=== PATIENT | female | born 1975 | race American Indian/Alaskan Native ===

== ENCOUNTER 2022-04-22 06:15 | Day surgery (SDC) | payer BC, MEDICARE ==
[~2022-04-22 06:15] MED LIST: ceFAZolin/STERILE WATER 2 GM/20 ML SYRINGE IV NR
[2022-04-22] MEDS ORDERED: LACTATED RINGERS 1,000 ML ONE (06:59)
--- NOTE | 2022-04-22 07:26 | Anesthesia Day of Surgery ---
Anesthesia Day of Surgery - Day of Surgery Patient Examined: Yes Patient H&P Reviewed: Yes Patient is NPO: Yes
--- NOTE | 2022-04-22 07:26 | Anesthesia Consultation ---
Anesthesia Consult and Med Hx Date of service: 04/22/22 - Airway Anesthetic Teeth Evaluation: Good, Partials (front bottom) ROM Head & Neck: Adequate Mental/Hyoid Distance: Adequate Mallampati Class: Class II Intubation Access Assessment: Good - Pulmonary Exam CTA: Yes - Cardiac Exam Cardiac Exam: RRR - Pre-Operative Health Status ASA Pre-Surgery Classification: ASA2 Proposed Anesthetic Plan: General Nerve Block: IS - Pulmonary Hx Sleep Apnea: Yes - Central Nervous System Hx Psychiatric Problems: Yes - Hematic Hx Anemia: Yes (h/0 blood transfusion with in the last few months) - Other Systems Hx Alcohol Use: No Hx Substance Use: Yes (SMOKES MARIJUANA EVERYDAY. 5-6 JOINTS APPROX.) Hx Cancer: No
[2022-04-22] MEDS ORDERED: fentaNYL 100 MCG/2 ML INJ IV NR (07:27)
[2022-04-22] MEDS ORDERED: LIDOCAINE (1%) 10 MG/1 ML VIAL 20 ML MDV INFILTRATI NR (07:30)
[2022-04-22 07:35] LABS: Hematocrit 35.4 % (30.3-42.9); Hemoglobin 11.5 gm/dl (10.1-14.3); Mean Corpuscular HGB Conc 33 % (30-34); Mean Corpuscular Volume 88 fl (79-97); Platelet Count 136 K/mm3 (140-440); Red Blood Count 4.01 M/mm3 (3.65-5.03)
[2022-04-22] MEDS ORDERED: BUPIVACAINE/PF (0.5%) 5 MG/1 ML 30 ML VIAL INFILTRATI ONE (07:36)
[2022-04-22] MEDS ORDERED: EPINEPHrine/PF 1 MG/1 ML INJ ONE (07:36)
[2022-04-22] MEDS ORDERED: fentaNYL 100 MCG/2 ML INJ ONE (07:36)
[2022-04-22] MEDS ORDERED: MIDAZOLAM 2 MG/2 ML INJ ONE ×2 (07:36→08:00)
[2022-04-22] MEDS ORDERED: LIDOCAINE (1%) 10 MG/1 ML VIAL 20 ML MDV ONE (07:36)
[2022-04-22] MEDS ORDERED: dexAMETHasone 4 MG/ML VIAL ONE (07:36)
[2022-04-22] MEDS ORDERED: VANCOMYCIN/NS 1 GM/250 ML 1 GM/250 ML BAG IV NR (07:39)
[2022-04-22] MEDS ORDERED: ONDANSETRON 4 MG/2 ML INJ ONE (07:45)
[2022-04-22] MEDS ORDERED: propofoL 200 MG/20 ML VIAL IV ONE (07:45)
[2022-04-22] MEDS ORDERED: HYDROmorphone 1 MG/1 ML INJ ONE (07:45)
[2022-04-22] MEDS ORDERED: LIDOCAINE MPF (2%) 20 MG/1 ML VIAL 5 ML ONE (07:45)
[2022-04-22] MEDS ORDERED: ROCURONIUM 50 MG/5 ML INJ IV ONE (07:45)
[2022-04-22 07:49] LABS: Red Cell Distribution Width 27.3 % (13.2-15.2)
[2022-04-22] MEDS ORDERED: LACTATED RINGERS 1,000 ML IV SCH (08:00)
[2022-04-22] MEDS ORDERED: BUPIVACAINE/PF (0.5%) 5 MG/1 ML 10 ML VIAL INFILTRATI NR (08:00)
[2022-04-22] MEDS ORDERED: VANCOMYCIN 1,750 MG in SODIUM CHLORIDE 0.9% 500 ML 500 ML IV ONE (08:00)
[2022-04-22] MEDS ORDERED: SODIUM CHLORIDE 0.9% IRRIG SOLN 2000 ML IR ONE ×2 (09:21)
[2022-04-22] MEDS ORDERED: EPINEPHrine/PF 1 MG/1 ML INJ IV ONE (09:22)
[2022-04-22] MEDS ORDERED: dexAMETHasone 20 MG/5 ML VIAL ONE (09:46)
[2022-04-22] MEDS ORDERED: NEOSTIGMINE 10MG/10 ML INJ MDV ONE (09:47)
[2022-04-22] MEDS ORDERED: GLYCOPYRROLATE 0.4 MG/2 ML INJ ONE (09:47)
--- NOTE | 2022-04-22 10:07 | Discharge Summary ---
Short Stay Discharge Plan Weight Bearing Status: Weight Bear as Tolerated Diet: regular Wound: change dressing (In 48 hrs may remove dressing and take shower, cover incisions with waterproof bandaids) Follow up with: PATRICIA FRANCIS MD [Primary Care Provider] - 7 Days KOMAL KLEIN II, MD [Staff Physician] - 14 Days
[2022-04-22] MEDS ORDERED: oxyCODONE /ACETAMINOPHEN 5-325MG TAB PO NR (11:49)
[2022-04-22 12:47] VITALS: BP 126/71
--- NOTE | 2022-04-22 14:10 | Post Anesthesia Evaluation ---
- Post Anesthesia Evaluation Patient Participated: Yes Airway Patent: Yes Stable Respiratory Function: Yes Nausea/Vomiting: No Temp > 96.8F: Yes Pain Manageable: Yes Adequeate Hydration: Yes Anesthesia Complications: No Block Receding Appropriately: Yes Patient on Ventilator: No
--- NOTE | 2022-04-23 03:56 | Operative Report ---
DATE OF SURGERY: 04/22/2022 PREOPERATIVE DIAGNOSIS: Right shoulder rotator cuff tear. POSTOPERATIVE DIAGNOSIS: Right shoulder rotator cuff tear. PROCEDURE PERFORMED: Right shoulder arthroscopic rotator cuff repair and subacromial decompression. SURGEON: Hugo Garcia II, MD. MAKE UP EDITOR: None. ANESTHESIA: General with interscalene block. COMPLICATIONS: None. DRAINS: None. SPECIMENS: None. TOURNIQUET TIME: Not applicable. PREOPERATIVE MEDICATIONS: Vancomycin 1 gram. Examination under anesthesia revealed full range of motion, no instability. OPERATIVE FINDINGS: Include a high-grade partial thickness tear of the rotator cuff estimated to be approximately 60% thickness. INDICATIONS: The patient is a 47-year-old female who has been having refractory pain in her right shoulder. Evaluation workup suggests a rotator cuff tear. It was recommended the patient undergo surgical management. Risks, benefits and limitations of surgery were discussed with the patient including bleeding, infection, injury to nerves, blood vessel, need for operation. The patient appeared to understand risks and consented to undergo surgery. TECHNIQUE: In the preoperative holding area, site was marked with surgical marking pen. Extremity was prepped and draped in sterile fashion in beach chair position. Standard posterior portal was placed and diagnostic arthroscopy was performed. The biceps tendon articular cartilage subscapularis all appeared to be intact. There was noted to be a high-grade partial thickness tear of the rotator cuff estimated to be about 60% thickness. Decision was made to perform arthroscopic rotator cuff repair. The tear was completed. The endoscope was placed into the subacromial space where a bursectomy and arthroscopic acromioplasty was performed, removing about 5 mm undersurface of the acromion. Rotator cuff tear was visualized and measured approximately 1 cm in length from anterior to posterior. A medial row anchor 5.5 mm PEEK rods were then confirmed was inserted just off the articular margin. Two mattress sutures were passed through the rotator cuff and tied down arthroscopically. A 4.5 mm PEEK [employer] anchor was then inserted laterally off the drop off in order to complete the double row repair. The arthroscope was removed. Incisions were closed with 3-0 nylon. Sterile dressing was applied. The patient was awakened and taken to recovery room in stable condition. POSTOPERATIVE PLAN: The patient will be in a sling for 6 weeks of physical therapy, work on range of motion exercises, see the patient back for a followup visit in 2 weeks postop. TID: [id number] RECEIPT: [id number] ARIANA/NELSON/MERLIN
== END 2022-04-22 06:16 | disposition home or self-care (01) ==
LOC: OR 06:15
PROVIDERS: ATTEND Orthopaedic Surgery Sports Medicine
DX: M75.121 Complete rotator cuff tear or rupture of right shoulder, not specified as traumatic (principal); D64.9 Anemia, unspecified; M19.90 Unspecified osteoarthritis, unspecified site; F32.9 Major depressive disorder, single episode, unspecified; F41.9 Anxiety disorder, unspecified; Z88.0 Allergy status to penicillin; Z91.013 Allergy to seafood; Z98.890 Other specified postprocedural states; Z79.899 Other long term (current) drug therapy; Z86.2 Personal history of diseases of the blood and blood-forming organs and certain disorders involving the immune mechanism
CPT/HCPCS: 29826; 29827; 36415; 64415; 85027; C1713; J0171; J1100; J1170; J1815; J2250; J2405; J2704; J2710; J3010; J3370; J3490; J7040; J7120